=== PATIENT | female | born 1985 | race Caucasian/White ===

== ENCOUNTER 2017-02-22 18:17 | Emergency (ER) | payer BC, OTHER ==
--- NOTE | 2017-02-22 19:05 | EDM.PDOC ---
ED HPI GENERAL MEDICAL PROBLEM - General Chief Complaint: Genitourinary Problem Stated Complaint: Pain with urination Time Seen by Provider: 02/22/17 18:45 Source of Information: Reports: Patient, RN Notes Reviewed History Limitations: Reports: No Limitations - History of Present Illness INITIAL COMMENTS - FREE TEXT/NARRATIVE: 32 year old female presents to the ED today with 24 hour history of dysuria, frequency, urgency, and hematuria. She has some mild right flank pain. No fever , chills or sweats. No abdominal pain, nausea, vomiting or diarrhea. LMP was . She is not on any forms of control. No surgery. When asked about possibility of , she replied "I don't think so." Right Lower Flank Pain Score (Numeric/FACES): 5 - Related Data Allergies Allergy/AdvReac Type Severity Reaction Status Date / Time No Known Allergies Allergy Verified 02/22/17 18:36 Home Meds: Home Meds Nitrofurantoin Macrocrystal [Macrodantin] 100 mg PO BID #10 capsule 02/22/17 [Rx ] Thyroid,Pork [[place] Thyroid] 30 mg PO DAILY 02/22/17 [History] buPROPion HCl [Wellbutrin Xl] 300 mg PO DAILY 02/22/17 [History] Past Medical History HEENT History: Reports: Sinusitis Psychiatric History: Reports: Anxiety Endocrine/Metabolic History: Reports: Hypothyroidism - Past Surgical History HEENT Surgical History: Reports: Naso-Sinus Surgery, Tonsillectomy GI Surgical History: Reports: Appendectomy Social & Family History - Family History Family Medical History: Noncontributory - Tobacco Use Smoking Status *Q: Never Smoker - Caffeine Use Caffeine Use: Reports: Coffee - Recreational Drug Use Recreational Drug Use: No ED ROS GENERAL - Review of Systems Review Of Systems: See Below Constitutional: Reports: No Symptoms. Denies: Fever, Chills, Diaphoresis GI/Abdominal: Reports: No Symptoms. Denies: Abdominal Pain, Diarrhea, Nausea, Vomiting : Reports: Dysuria, Flank Pain, Frequency, Hematuria, Urgency. Denies: Discharge ED EXAM, RENAL/ - Physical Exam Exam: See Below Exam Limited By: No Limitations General Appearance: Alert, WD/WN, No Apparent Distress Respiratory/Chest: No Respiratory Distress, Lungs Clear, Normal Breath Sounds Cardiovascular: Regular Rate, Rhythm GI/Abdominal: Normal Bowel Sounds, Soft, Non-Tender, No Distention Back Exam: Normal Inspection, Full Range of Motion. No: CVA Tenderness (L), CVA Tenderness (R) Course - Vital Signs Last Recorded V/S: Last Vital Signs Temp 97.7 F 02/22/17 18:29 Pulse 97 02/22/17 18:29 Resp 15 02/22/17 18:29 BP 107/84 02/22/17 18:29 Pulse Ox 98 02/22/17 18:29 - Orders/Labs/Meds Orders: Active Orders 24 hr Category Date Time Status CULTURE URINE [RM] Stat Lab 02/22/17 19:00 Received Labs: Laboratory Tests 02/22/17 02/22/17 Range/Units 19:00 19:00 Urine Color Yellow (Yellow) Urine Appearance Cloudy H (Clear) Urine pH 7.0 (5.0-8.0) Ur Specific Pimento 1.025 (1.005-1.030) Urine Protein 2+ H (Negative) Urine Glucose (UA) Negative (Negative) Urine Ketones 2+ H (Negative) Urine Occult Blood 3+ H (Negative) Urine Nitrite Negative (Negative) Urine Bilirubin 1+ H (Negative) Urine Urobilinogen 1.0 (0.2-1.0) Ur Leukocyte Esterase 1+ H (Negative) Urine RBC >100 H (0-5) /hpf Urine WBC >100 H (0-5) /hpf Urine WBC Clumps Few (NOT SEEN) /hpf Ur Epithelial Cells 0-5 (0-5) /hpf Urine Bacteria Many H (FEW) /hpf Urine Mucus Moderate H (FEW) /hpf Urine HCG, Qual Negative (NEGATIVE) - Re-Assessments/Exams Free Text/Narrative Re-Assessment/Exam: UA is positive. Sent for culture. Hcg negative. Will start patient on nitrofurantoin 100mg PO BID x5 days. Discharge instructions as documented. Departure - Departure Time of Disposition: 19:46 Disposition: Home, Self-Care 01 Condition: Good Clinical Impression: UTI, Urinary tract infectious disease - Discharge Information Prescriptions: Nitrofurantoin Macrocrystal [Macrodantin] 100 mg PO BID #10 capsule Instructions: Urinary Tract Infection, Adult, [id number] Referrals: PCP,None [Primary Care Provider] - Forms: ED Department Discharge Additional Instructions: Drink plenty of fluids Tylenol or Motrin as needed for pain or fever Nitrofurantoin 100mg twice a day for 5 days Return to ER or followup in clinic if symptoms do not improve in 2-3 days You can take over the counter Azo as directed for pain as well Will call with culture results if changes need to be made - My Orders Last 24 Hours: My Active Orders 02/22/17 19:00 CULTURE URINE [RM] Stat - Assessment/Plan Last 24 Hours: My Active Orders 02/22/17 19:00 CULTURE URINE [RM] Stat
== END 2017-02-22 19:54 | disposition home or self-care (01) ==
LOC: JD.ED 18:17
DX: N39.0 Urinary tract infection, site not specified (principal); Z79.899 Other long term (current) drug therapy; E03.9 Hypothyroidism, unspecified
CPT/HCPCS: 81001; 81025; 87086; 87088; 87186; 99283

== ENCOUNTER → 2017-05-16 | Day surgery (SDC) | payer OTHER ==
[~2017-05-16] MED LIST: Dexamethasone 4 MG/ML SDV ONE; Ketamine 500 mg/10 ML MDV ONE; Ketorolac 30 MG/ML SDV ONE; Lactated Ringers 1,000 ML IV SCH; Lidocaine 1% 4 ML ONE; Lidocaine 1%/Sod Bicarbonate in NS 8.4% 1 ML Syringe IDERM PRN; Midazolam 1 MG/ML 2 ML SDV ONE; Ondansetron 4 MG/2 ML SDV ONE; Propofol 200 MG/20 ML SDV ONE; Sodium Chloride 0.9% 10 ML Syringe FLUSH PRN; ceFAZolin 1 GM Vial ONE; fentaNYL 100 MCG/2 ML SDV ONE
--- NOTE | 2017-05-16 09:38 | PCM.PREANE ---
Preanesthetic Assessment - Procedure Proposed Procedure: D&C, hysteroscopy, polypectomy - Anesthesia/Transfusion/Family Hx Anesthesia History: Prior Anesthesia Reaction Type of Anesthesia Reaction: Excessive Nausea/Vomiting Family History of Anesthesia Reaction: No Transfusion History: No Prior Transfusion(s) Intubation History: Unknown - Review of Systems General: No Symptoms Pulmonary: No Symptoms Cardiovascular: No Symptoms Gastrointestinal: No Symptoms Neurological: No Symptoms Other: Reports: Thyroid Problems, Anxiety - Physical Assessment NPO Status Date: 05/15/17 NPO Status Time: 21:15 Pulse: 81 O2 Sat by Pulse Oximetry: 99 Respiratory Rate: 16 Blood Pressure: 109/74 Temperature: 37.2 C Height: 1.7 m Weight: 59 kg ASA Class: 1 Mental Status: Alert & Oriented x3 Airway Class: Mallampati = 1 Dentition: Reports: Normal Dentition Thyro-Mental Finger Breadths: 3 Mouth Opening Finger Breadths: 3 ROM/Head Extension: Full Lungs: Clear to Auscultation, Normal Respiratory Effort Cardiovascular: Regular Rate, Regular Rhythm - Lab Values: Laboratory Last Values Urine HCG, Qual Negative (NEGATIVE) 05/16/17 09:02 - Allergies Allergies/Adverse Reactions: Allergies Allergy/AdvReac Type Severity Reaction Status Date / Time No Known Allergies Allergy Verified 05/15/17 12:17 - Blood Blood Available: No Product(s) Available: None - Anesthesia Plan Pre-Op Medication Ordered: None - Acknowledgements Anesthesia Type Planned: MAC Pt an Appropriate Candidate for the Planned Anesthesia: Yes Alternatives and Risks of Anesthesia Discussed w Pt/Guardian: Yes Pt/Guardian Understands and Agrees with Anesthesia Plan: Yes PreAnesthesia Questionnaire HEENT History: Reports: Impaired Vision, Sinusitis, Other (See Below) Other HEENT History: wears glasses Cardiovascular History: Reports: None Respiratory History: Reports: None Gastrointestinal History: Reports: Irritable Bowel Syndrome Genitourinary History: Reports: None STOCKROOM COORDINATOR History: Reports: Other (See Below) Other OB/BYN History: endometrial polyp, pelvic pain Neurological History: Reports: None Psychiatric History: Reports: None, Anxiety Endocrine/Metabolic History: Reports: Hypothyroidism Hematologic History: Reports: None Immunologic History: Reports: None Oncologic (Cancer) History: Reports: None Dermatologic History: Reports: None - Past Surgical History Head Surgeries/Procedures: Reports: None HEENT Surgical History: Reports: Naso-Sinus Surgery, Tonsillectomy Cardiovascular Surgical History: Reports: None Respiratory Surgical History: Reports: None GI Surgical History: Reports: Appendectomy Female Surgical History: Reports: None Male Surgical History: Reports: None Endocrine Surgical History: Reports: None Neurological Surgical History: Reports: None Musculoskeletal Surgical History: Reports: Arthroscopic Knee Oncologic Surgical History: Reports: None Dermatological Surgical History: Reports: None - SUBSTANCE USE Smoking Status *Q: Never Smoker Recreational Drug Use History: No - HOME MEDS Home Medications: Home Meds buPROPion HCl [Wellbutrin Xl] 300 mg PO DAILY 02/22/17 [History] Cholecalciferol (Vitamin D3) [Vitamin D] 5,000 unit PO DAILY 05/15/17 [History] Multivitamin [Daily Joyce] 1 tab PO DAILY 05/15/17 [History] Thyroid [[place] Thyroid] 60 mg PO DAILY 05/15/17 [History] - CURRENT (IN HOUSE) MEDS Current Meds: Current Medications Lactated Ringer's (Ringers, Lactated) 1,000 mls @ 125 mls/hr IV ASDIRECTED MARYANA Stop: 05/16/17 23:00 Lidocaine/Sodium Bicarbonate (Buffered Lidocaine 1% In Ns 8.4%) 0.25 ml IDERM ONETIME PRN PRN Reason: Prior to IV Start Stop: 05/16/17 18:00 Sodium Chloride (Saline Flush) 10 ml FLUSH ASDIRECTED PRN PRN Reason: Keep Vein Open Stop: 05/16/17 18:00
--- NOTE | 2017-05-16 12:15 | PCM.OPNOTE ---
- General Post-Op/Procedure Note Date of Surgery/Procedure: 05/16/17 Operative Procedure(s): D&C and hysteroscopy 30143 Pre Op Diagnosis: Heavy menses irregular menses suspected endometrial polyp on biopsy Post-Op Diagnosis: Same Anesthesia Technique: MAC Primary Surgeon: Esequiel Ortiz Reason Java Golden Gate Developer Was Necessary: NA Role of Java Golden Gate Developer: NA Fluid Replacement, Intraop: 1,000 Output, Urine Amount: 0 EBL in mLs: 5 Drain/Tube Comments:: None Complications: None Condition: Good Free Text/Narrative:: Patient was transported to operating room #2 and placed under Mac anesthesia and prepared and draped in a sterile fashion in the low dorsal lithotomy position. Timeout performed confirming name, date of , procedure as dilatation and curettage and hysteroscopy. Examination under anesthesia had revealed normal size uterus. SCDs in place and functioning prior surgery Ancef 2 g given intravenously prior surgery. The uterus was sounded to 9 cm and cervix dilated to accommodate the hysteroscope. The hysteroscope was introduced and prompt visualization of the in a mutual cavity was obtained there was no obvious polyp the right tubal ostia left tubal ostia were seen there was a fragmented pieces of tissue which could've been insistent with possible endometrial polyp curettage was performed and all tissue sent to pathology for tissue evaluation reinspection of the endometrial cavity showed no active bleeding no additional tissue to be removed. No blood transfusions required patient transported postanesthesia care unit in satisfactory condition. One set of pictures taken with 3 images Image 001 the right tubal ostia at approximately 7:00 on the picture image 00 to the left tubal ostia at approximately 3:00 image 003 shows the fundus of the uterus and a small fragment of tissue at the left side around 7:00 possible endometrial polyp
--- NOTE | 2017-05-16 12:21 | PCM48HPAN ---
Post Anesthesia Note - EVALUATION WITHIN 48HRS OF ANESTHETIC Vital Signs in Normal Range: Yes Patient Participated in Evaluation: Yes Respiratory Function Stable: Yes Airway Patent: Yes Pain Control Satisfactory: Yes Nausea and Vomiting Control Satisfactory: Yes Mental Status Recovered: Yes
== END | disposition home or self-care (01) ==
LOC: JD.SDS 08:54
PROVIDERS: ATTEND Obstetrics & Gynecology
DX: N92.6 Irregular menstruation, unspecified (principal); F41.9 Anxiety disorder, unspecified; E03.9 Hypothyroidism, unspecified; Z79.899 Other long term (current) drug therapy
CPT/HCPCS: 36415; 58558; 81025; 85025; J0690; J1100; J1885; J2250; J2405; J3010; J7120; J2704